=== PATIENT | female | born 1960 | race Caucasian/White ===

== ENCOUNTER → 2016-09-02 | Outpatient (CLI) | payer BC ==
[~2016-09-02] MED LIST: LEVO100T PO; MULT-506 PO
--- NOTE | 2016-09-02 14:42 | MAMMOGRAPHY REPORT ---
BILATERAL DIGITAL DIAGNOSTIC MAMMOGRAM TOMOSYNTHESIS WITH CAD AND TARGETED LEFT ULTRASOUND: 09/02/2016 CLINICAL HISTORY: 55-year-old woman presents for follow-up in the left breast for benign-appearing a symmetries in the upper outer middle and anterior breast with probable cystic correlates on ultrasou nd. TECHNIQUE: Bilateral breast tomosynthesis in addition to standard 2D mammography was performed. Curr ent study was also evaluated with a Computer Aided Detection (CAD) system. COMPARISON: Comparison is made to exams dated: 04/01/2016 ultrasound, 04/01/2016 mammogram, 08/22/2015 mammogram, 08/06/2014 mammogram, 06/05/2013 mammogram, and 05/23/2012 mammogram - [facility]. BREAST COMPOSITION: There are scattered areas of fibroglandular density in both breasts. FINDINGS: Asymmetries versus masses in the upper outer middle and anterior left breast are less pro minent comparing to the prior mammogram performed 04/01/2016. No obvious new mass, architectural di stortion or suspicious microcalcifications are identified bilaterally. Repeat targeted ultrasound was performed in the 12:00 and 1:00 axes of the left breast to reevaluate the probable cystic masses seen on prior exam. In the 12:00 left breast, 2 cm from the nipple, the re is a rounded to oval nearly anechoic cystic appearing mass measuring 3.5 x 3.1 x 3.8 mm, previous measurements were 5.6 x 3.2 x 3.1 mm. This has slightly decreased in size. A lobulated nearly ane choic cystic appearing mass is seen in the 1:00 left breast, 2 cm from the nipple, measuring 3.3 x 2 .4 x 1.9 mm. This previously measured 2.9 x 2.0 x 2.3 mm, and also appears slightly decreased in si ze. The interval decrease confirms benignity of both masses and no further close follow-up is neede d at this time. IMPRESSION: ACR BI-RADS CATEGORY 2: BENIGN, TARGETED ULTRASOUND ACR BI-RADS CATEGORY 2: BENIGN Decreased prominence of asymmetries in the upper outer middle and anterior left breast with otherwis e stable mammographic appearance bilaterally. 2 cystic-appearing masses in the left 12:00 and 1:00 breast have decreased in size on ultrasound, confirming benignity. There is no mammographic or targ eted sonographic evidence of malignancy. A 1 year screening mammogram is recommended. The patient has been verbally notified of the results. Approximately 10% of breast cancers are not detected with mammography. A negative mammographic repor t should not delay biopsy if a clinically suggestive mass is present. Kathy Manning M.D. ay/:09/02/2016 09:11:13 Pharmacist In Charge: Domenica Lawson, [facility] letter sent: Normal 1/2 BI-RADS Code: ACR BI-RADS Category 2: Benign Ultrasound BI-RADS: ACR BI-RADS Category 2: Benign
== END | disposition home or self-care (01) ==
LOC: C.MAMM 08:35
PROVIDERS: ATTEND Obstetrics & Gynecology
DX: Z09 Encounter for follow-up examination after completed treatment for conditions other than malignant neoplasm (principal); R92.8 Other abnormal and inconclusive findings on diagnostic imaging of breast

== ENCOUNTER → 2017-10-14 | Outpatient (CLI) | payer BC ==
--- NOTE | 2017-10-15 15:13 | MAMMOGRAPHY REPORT ---
BILATERAL DIGITAL SCREENING MAMMOGRAM TOMOSYNTHESIS WITH CAD: 10/14/2017 CLINICAL HISTORY: Routine screening. Patient has no complaints. TECHNIQUE: Breast tomosynthesis in addition to standard 2D mammography was performed. Current study was also evaluated with a Computer Aided Detection (CAD) system. COMPARISON: Comparison is made to exams dated: 09/02/2016 mammogram, 08/22/2015 mammogram, 08/06/2014 jan mogram, 06/05/2013 mammogram, 11/13/2011 mammogram, and 07/02/2010 mammogram - [facility] BREAST COMPOSITION: There are scattered areas of fibroglandular density in both breasts. FINDINGS: No suspicious masses, calcifications, or areas of architectural distortion are noted in ei ther breast. There has been no significant interval change compared to prior exams. IMPRESSION: ACR BI-RADS CATEGORY 1: NEGATIVE There is no mammographic evidence of malignancy. A 1 year screening mammogram is recommended. The pa tient will receive written notification of the results. Approximately 10% of breast cancers are not detected with mammography. A negative mammographic report should not delay biopsy if a clinically suggestive mass is present. Gail Jenkins M.D. ah/:10/14/2017 16:04:42 [employer] Mate: Christine VILLAGOMEZ(Abdias)(M), [facility] letter sent: Normal 1/2 BI-RADS Code: ACR BI-RADS Category 1: Negative
== END | disposition home or self-care (01) ==
LOC: C.MAMM 15:21
PROVIDERS: ATTEND Obstetrics & Gynecology
DX: Z12.31 Encounter for screening mammogram for malignant neoplasm of breast (principal)